=== PATIENT | male | born 1995 | race Hispanic/Latino ===

== ENCOUNTER 2024-08-20 07:25 | Emergency (ER) | payer SELFPAY ==
[~2024-08-20] VITALS: Ht 160 cm; Wt 74.0 kg
[2024-08-20 07:40] VITALS: BP 117/68
[2024-08-20 07:45] VITALS: BP 130/81
[2024-08-20] MEDS ORDERED: Diph, Acellular Pertussis, Tet 0.5 ML/VIAL (Tdap) SDV IM ONE (07:45)
[2024-08-20] MEDS ORDERED: SULFAMETHOXAZOLE W/TRIMETHOPRI 1 COMBO TAB PO ONE (07:45)
[2024-08-20] MEDS ORDERED: BACTRIM DS1 TAB PO (07:46)
[2024-08-20 07:57] VITALS: BP 117/68
== END 2024-08-20 07:58 | disposition home or self-care (01) | DRG 603 ==
LOC: ED 07:25
DX: L03.011 Cellulitis of right finger (principal); W60.XXXA Contact with nonvenomous plant thorns and spines and sharp leaves, initial encounter; Y92.74 Orchard as the place of occurrence of the external cause; Y99.0 Civilian activity done for income or pay